=== PATIENT | female | born 1940 | race African-American/Black ===

== ENCOUNTER 2024-07-12 16:25 | Emergency (ER) | payer OTHER, BC ==
[2024-07-12 16:34] VITALS: RESP 18; BMI 32.3
[2024-07-12] MEDS ORDERED: ACETAMINOPHEN 325 MG TABLET (FP) ONE (18:11)
[2024-07-12] MEDS: ACETAMINOPHEN 325 MG TABLET (FP) PO ONE (18:15)
[2024-07-12 18:16] LABS: BASO % 0.7 % (0-2.0); EOS % 2.1 % (0-4.5); HEMATOCRIT 36.2 % (32.4-45.2); LYMPH % 25.1 % (8-40); MCH 30.4 pg (25.7-33.7); MCHC 33.1 g/dl (32.0-36.0); MEAN CELL VOLUME 91.8 fl (80-96); MEAN PLT VOLUME 7.7 fl (7.5-11.1); NEUT % 63.1 % (42.8-82.8); PLATELET COUNT 244 10^3/uL (134-434); RBC 3.94 M/mm3 (3.60-5.2); RDW 14.8 % (11.6-15.6); WHITE BLOOD COUNT 5.9 K/mm3 (4.0-10.0)
[2024-07-12 18:38] LABS: POTASSIUM 4.6 mmol/L (3.5-5.1)
[2024-07-12 18:40] LABS: ALBUMIN 3.3 g/dl (3.4-5.0); BLOOD UREA NITROGEN 12.3 mg/dL (7-18); CALCIUM 10.2 mg/dL (8.5-10.1)
[2024-07-12 18:44] LABS: CREATININE 0.7 mg/dL (0.55-1.3)
[2024-07-12 18:45] LABS: BILIRUBIN,TOTAL 0.3 mg/dL (0.2-1); TOT PROT 7.6 g/dl (6.4-8.2)
[2024-07-12 19:52] VITALS: TEMP 97.8
[2024-07-12 21:32] VITALS: BP 160/84; PULSE 81
[2024-07-12] MEDS ORDERED: HYDROCHLOROTHIAZIDE 25 MG TABLET (FP) ONE (22:43)
[2024-07-12] MEDS: HYDROCHLOROTHIAZIDE 25 MG TABLET (FP) PO ONE (22:53)
== END 2024-07-12 23:36 | disposition home or self-care (01) ==
LOC: JER 16:25
DX: R07.89 Other chest pain (principal); M25.511 Pain in right shoulder; Z20.822 Contact with and (suspected) exposure to COVID-19
CPT/HCPCS: 0241U-QW; 36415; 71046-TC-FY; 71275-TC; 80053; 83690; 84484; 85025; 93005; 93010; 99285-25